=== PATIENT | male | born 1985 | race Caucasian/White ===

== ENCOUNTER 2017-01-23 17:46 | Emergency (ER) | payer BC ==
--- NOTE | 2017-01-23 20:46 | RAD ---
INDICATION: Chest pain with radiation to the back COMPARISON: Chest x-ray dated October 05, 2015 TECHNIQUE: PA and lateral views of the chest were obtained. FINDINGS: The heart and mediastinum are normal in size and contour. The lungs are grossly clear. There is no evidence of large pleural effusion. Visualized bones are normal for the patient's age. There is no radiographic evidence of free air beneath the diaphragm IMPRESSION: No radiographic evidence of acute cardiopulmonary disease.
[2017-01-23 21:14] VITALS: BP 110/71
--- NOTE | 2017-01-23 22:46 | UC ---
Yamile Chavez Edward, scribed for Jason Warren MD on 01/23/17 at 1858 . Back Pain HPI - HPI Summary HPI Summary: 31 y/o male presents to [facility] c/o gradual onset back pain for the past few days, starting in his L shoulder blade. The pain is described as an ache. The back pain is not aggravated with movements or deep breaths. The pain is described as a sharp, burning pain. Associated sx: CP pain (esophageal pain) aggravated with exercise, intermittent palpitations, sleep disturbance, L arm ache. CP pain not aggravated with food. Denies CP and SOB with palpitations. Pt was treated for GERD, given GI Cocktail. PMHx anxiety. FHx father - MD and stent, grandfather - MD. - History of Current Complaint Chief Complaint: UCGI Stated Complaint: BACK PAIN Hx Obtained From: Patient Onset/Duration: Sudden Onset, Lasting Days, Still Present Timing: Intermittent Associated Signs And Symptoms: Positive: Other - CP and Back pain, L arm ache - Allergies/Home Medications Allergies/Adverse Reactions: Allergies Allergy/AdvReac Type Severity Reaction Status Date / Time Sulfa Antibiotics Allergy Rash Verified 01/23/17 17:54 Home Medications: Home Medications NK [No Home Medications Reported] 01/23/17 [History Confirmed 01/23/17] PMH/Surg Hx/FS Hx/Imm Hx Previously Healthy: No GI/ History: Gastroesophageal Reflux Other History Of: Negative For: Anticoagulant Therapy - Surgical History Surgical History: None - Family History Known Family History: Positive: Cardiac Disease - DAD AND PGF - CAD, Other - Father - GERD - Social History Alcohol Use: Occasionally Substance Use Type: None Smoking Status (MU): Never Smoked Tobacco Review of Systems Constitutional: Negative Skin: Negative Eyes: Negative ENT: Negative Respiratory: Negative - No SOB Cardiovascular: Palpitations Gastrointestinal: Other - CP (esophageal pain) Genitourinary: Negative Motor: Negative Neurovascular: Negative Musculoskeletal: Arthralgia - L shoulder pain. Back pain, Myalgia - L arm ache Neurological: Negative Psychological: Other - Sleep disturbance All Other Systems Reviewed And Are Negative: Yes Physical Exam Triage Information Reviewed: Yes Vital Signs: Initial Vital Signs Temp 99.5 F 01/23/17 17:48 Pulse 104 01/23/17 17:48 Resp 18 01/23/17 17:48 BP 148/81 01/23/17 17:48 Pulse Ox 100 01/23/17 17:48 Vital Signs Reviewed: Yes - Additional Comments The patient is well-nourished in no acute distress and in no acute pain. The skin is warm and dry and skin color reflects adequate perfusion. HEENT: The head is normocephalic and atraumatic. The pupils are equal and reactive. The conjunctivae are clear and without drainage. Nares are patent and without drainage. Mouth reveals moist mucous membranes and the throat is without erythema and exudate. The external ears are intact. The ear canals are patent and without drainage. The tympanic membranes are intact. Neck is supple with full range of motion and non-tender. There are no carotid bruits. There is no neck vein distension. Respiratory: Chest is non-tender. Lungs are clear to auscultation and breath sounds are symmetrical and equal. Cardiovascular: Hear is regular rate and rhythm. There is no murmur or rub auscultated. There is no peripheral edema and pulses are symmetrical and equal. Abdomen: The abdomen is soft and non-tender. There are normal bowel sounds heard in all four quadrants and there is no organomegaly palpated. Musculoskeletal: There is no back pain noted and no reproducible back pain. Extremities are non-tender with full range of motion. There is good capillary refill. There is no peripheral edema or calf tenderness elicited. Neurological: Patient is alert and oriented to person, place and time. The patient has symmetrical motor strength in all four extremities. Cranial nerves are grossly intact. Deep tendon reflexes are symmetrical and equal in all four extremities. Psychiatric: The patient has an appropriate affect and does not exhibit any anxiety or depression. Diagnostics - Radiology CXR Xray Interpretation: No Acute Changes - No radiographic evidence of acute cardiopulmonary disease. Radiology Interpretation Completed By: Radiologist - EKG Cardiac Rate: NL Cardiac Rhythm: Sinus: Normal - 19:37 - 72 bpm Back Pain Course/Dx - Course Course Of Treatment: 31 y/o male presents to [facility] c/o gradual onset back pain for the past few days, starting in his L shoulder blade. The pain is described as an ache. The back pain is not aggravated with movements or deep breaths. The pain is described as a sharp, burning pain. Associated sx: CP pain (esophageal pain) aggravated with exercise, intermittent palpitations, sleep disturbance, L arm ache. CP pain not aggravated with food. Denies CP and SOB with palpitations. Pt was treated for GERD, given GI Cocktail. PMHx anxiety. FHx father - MD and stent, grandfather - MD. EKG at 19:37 shows NSR @ [address] ordered but pt is worried about radiation exposure. Talked to the pt who agreed to will take an XR instead to r/o fracture, pneumothorax, etc. CXR SHOWS No radiographic evidence of acute cardiopulmonary disease. - Differential Dx/Diagnosis Differential Diagnosis/HQI/PQRI: Strain, Sprain - GERD, chest pain, angina, exertional chest pain Provider Diagnoses: Chest pain, GERD Discharge - Discharge Plan Condition: Stable Disposition: HOME Patient Education Materials: Chest Pain (ED), Gastroesophageal Reflux Disease ( ED) Referrals: Kimberley Cyr MD [Primary Care Provider] - Additional Instructions: Recommend Prilosec. Consider cardiac workup. Keep appt with Dr. Dhaval Downey The documentation as recorded by the Yamile bagley Edward accurately reflects the service I personally performed and the decisions made by me, Jason Warren MD.
== END 2017-01-23 21:10 | disposition home or self-care (01) ==
LOC: UCEAST 17:46
DX: R07.9 Chest pain, unspecified (principal); Z88.2 Allergy status to sulfonamides; K21.9 Gastro-esophageal reflux disease without esophagitis; F41.9 Anxiety disorder, unspecified; G47.9 Sleep disorder, unspecified
CPT/HCPCS: 71020; 93005; 99211; G0463